=== PATIENT | female | born 1995 | race Caucasian/White ===

== ENCOUNTER 2016-05-05 21:51 | Emergency (ER) | payer OTHER ==
[~2016-05-05] VITALS: Ht 167.6 cm; Wt 58.3 kg
[2016-05-05 21:55] VITALS: Ht 167.6 cm; Wt 58.3 kg
[2016-05-05] MEDS ORDERED: CETI10TA84 PO (22:43)
[2016-05-05] MEDS ORDERED: BCPILLS PO (22:43)
[2016-05-05] MEDS ORDERED: CITA20TA9 PO (22:43)
[2016-05-05 22:49] VITALS: O2SAT 99
--- NOTE | 2016-05-05 22:49 | EMERGENCY ROOM VISIT NOTE ---
History Report prepared by Kathleen: Pastora Seay Under the Supervision of: Mariia De SouzaO. First contact with patient: 22:32 Chief Complaint: OTHER COMPLAINT Stated Complaint: BODY ACHES,SORE THROAT,RED SPOTS ON BODY History of Present Illness The patient is a 20 year old female who presents to the Emergency Room with complaints of a constant rash beginning 4 hours ago. She states that she woke up this morning and felt fatigue, sore throat, body aches, soreness, headache, left calf pain and chills. She reports that when she got back from class 4 hours ago she noticed red spots on her body that are worsening and have spread to her palms and abdomen. The patient denies any pain, itchiness, or bumpiness to her rash. She denies any recent travel, abdominal pain, or noticing others with similar symptoms. She reports that she took Advil this morning and slept 7 hours today. The patient notes that she has never had similar symptoms previously. Source of History: patient Onset: 4 hours ago Position: other (global) Quality: other (red spots) Timing: constant, worsening Associated Symptoms: + chills, + fatigue, + headache, + sorethroat Note: She states that she woke up this morning and felt body aches, soreness, left calf pain. The patient denies any pain, itchiness, or bumpiness to her rash. She denies any recent travel, abdominal pain, or noticing others with similar symptoms. Review of Systems See HPI for pertinent positives and negatives. A total of ten systems were reviewed and were otherwise negative. Past Medical & Surgical Medical Problems: (1) No Known Active Medical Problems Family History Diabetes mellitus Hypertension Social History Smoking Status: Never Smoker Smokeless Tobacco Use: No Alcohol Use: occasionally Marital Status: single Housing Status: lives with roommate Occupation Status: [employer] student Current/Historical Medications Scheduled Control Pills ( Control Pills), 1 TAB PO QPM Scheduled PRN Cetirizine (Zyrtec), 10 MG PO DAILY PRN for ALLERGIC REACTION Citalopram Hydrobromide (Celexa), 20 MG PO DAILY PRN for Anxiety Allergies Coded Allergies: No Known Allergies (Unverified , 05/05/16) Physical Exam Vital Signs Date Time Temp Pulse Resp B/P Pulse Ox O2 Delivery O2 Flow Rate FiO2 05/06/16 00:28 37.2 91 16 115/67 98 Room Air 05/05/16 23:25 118 16 116/93 97 Room Air 05/05/16 23:11 112 16 98 Room Air 05/05/16 22:55 113 05/05/16 22:49 99 Room Air 05/05/16 21:55 37.0 121 16 130/77 99 Room Air Physical Exam GENERAL: Awake, alert, well-appearing, in no distress HENT: Normocephalic, atraumatic. Oropharynx unremarkable. EYES: Normal conjunctiva. Sclera non-icteric. NECK: Supple. No nuchal rigidity. FROM. No JVD. RESPIRATORY: Clear to auscultation. CARDIAC: Regular rate, normal rhythm. Extremities warm and well perfused. Pulses equal. ABDOMEN: Soft, non-distended. No tenderness to palpation. No rebound or guarding. No masses. RECTAL: Deferred. MUSCULOSKELETAL: Chest examination reveals no tenderness. The back is symmetrical on inspection without obvious abnormality. There is no CVA tenderness to palpation. No joint edema. LOWER EXTREMITIES: Calves are equal size bilaterally and non-tender. No edema. No discoloration. NEURO: Normal sensorium. No sensory or motor deficits noted. SKIN: Diffuse blanchable maculopapular rash. Medical Decision & Procedures ER Provider Diagnostic Interpretation: X-ray: Per my interpretation. Chest X-Ray: Negative for infilterate, no effusions. Laboratory Results 05/05/16 22:35 Red Blood Count 4.51, Mean Corpuscular Volume 89.1, Mean Corpuscular Hemoglobin 31.0, Mean Corpuscular Hemoglobin Concent 34.8, Mean Platelet Volume 9.7, Neutrophils (%) (Auto) 91.0, Lymphocytes (%) (Auto) 5.6, Monocytes (%) (Auto) 2.7, Eosinophils (%) (Auto) 0.2, Basophils (%) (Auto) 0.2, Neutrophils # (Auto) 14.91, Lymphocytes # (Auto) 0.92, Monocytes # (Auto) 0.44, Eosinophils # (Auto) 0.03, Basophils # (Auto) 0.04 05/05/16 22:35 Test 05/05/16 22:35 05/05/16 22:44 White Blood Count 16.39 K/uL (4.8-10.8) Red Blood Count 4.51 M/uL (4.2-5.4) Hemoglobin 14.0 g/dL (12.0-16.0) Hematocrit 40.2 % (37-47) Mean Corpuscular Volume 89.1 fL (80-100) Mean Corpuscular Hemoglobin 31.0 pg (25-34) Mean Corpuscular Hemoglobin Concent 34.8 g/dl (32-36) Platelet Count 267 K/uL (130-400) Mean Platelet Volume 9.7 fL (7.4-10.4) Neutrophils (%) (Auto) 91.0 % Lymphocytes (%) (Auto) 5.6 % Monocytes (%) (Auto) 2.7 % Eosinophils (%) (Auto) 0.2 % Basophils (%) (Auto) 0.2 % Neutrophils # (Auto) 14.91 K/uL (1.4-6.5) Lymphocytes # (Auto) 0.92 K/uL (1.2-3.4) Monocytes # (Auto) 0.44 K/uL (0.11-0.59) Eosinophils # (Auto) 0.03 K/uL (0-0.5) Basophils # (Auto) 0.04 K/uL (0-0.2) RDW Standard Deviation 44.3 fL (36.4-46.3) RDW Coefficient of Variation 13.5 % (11.5-14.5) Immature Granulocyte % (Auto) 0.3 % Immature Granulocyte # (Auto) 0.05 K/uL (0.00-0.02) Prothrombin Time 11.7 SECONDS (9.0-12.0) Prothromb Time International Ratio 1.1 (0.9-1.1) Anion Gap 7.0 mmol/L (3-11) Est Creatinine Clear Calc Drug Dose 87.9 ml/min Estimated GFR () 101.2 Estimated GFR (Non- 87.3 BUN/Creatinine Ratio 12.0 (10-20) Calcium Level 9.2 mg/dl (8.5-10.1) Total Bilirubin 0.4 mg/dl (0.2-1) Direct Bilirubin 0.1 mg/dl (0-0.2) Aspartate Amino Transf (AST/SGOT) 13 U/L (15-37) Alanine Aminotransferase (ALT/SGPT) 18 U/L (12-78) Alkaline Phosphatase 70 U/L (45-117) Total Protein 8.1 gm/dl (6.4-8.2) Albumin 3.7 gm/dl (3.4-5.0) Monoscreen NEG (NEG) Laboratory results reviewed by me Medications Administered Medications (Trade) Dose Ordered Sig/[place] Route Start Time Stop Time Status Last Admin Dose Admin Diphenhydramine HCl 25 mg 25 mg NOW STAT IV 05/05/16 23:16 05/05/16 23:17 DC 05/05/16 23:27 25 MG Sodium Chloride (Nss 1000ml) 1,000 ml @ 999 mls/hr Q1H1M STAT IV 05/05/16 23:47 05/06/16 00:47 05/05/16 23:49 999 MLS/HR Acetaminophen (Tylenol Tab) 1,000 mg NOW STAT PO 05/06/16 00:15 05/06/16 00:16 DC 05/06/16 00:27 1,000 MG ED Course 2232: The patient was evaluated in room C8. A complete history and physical exam was performed. 2316: Benadryl Inj 25mg IV. 2338: I reevaluated the patient. She is resting and is in no distress. She is smiling and interacting with her friends at the bedside and has no current complaints. 2347: Sodium Chloride 1000 ml @ 999 mls/hr IV. 0015: Tylenol Tab 1000mg PO. 0032: 0042: I reevaluated the patient. Discussed results and discharge instructions: She verbalized understanding and agreement. The patient is ready for discharge. Medical Decision Differential diagnoses include viral syndrome, viral exanthem, upper respiratory infection, pharyngitis, doubt meningitis, non-petechial rash, possible allergic reaction. Patient on reexamination is smiling and in no distress and nontoxic in appearance. Patient was given Benadryl to see if that would rohini the rash it did not. Patient's rash on reexamination is blanchable and it is not petechial. I do not suspect the patient have meningitis or meningococcemia at this time. Patient was given IV fluids Tylenol. This may be viral in nature and a viral exanthem. Patient was instructed to return for worsening symptoms fever headache photophobia and neck pain or for any worsening of symptoms. Reexamination 1236 patient is resting in no distress; heart rate less than 100 blood pressures greater than 110 smiling in no distress drinking fluids. I discussed workup with the patient patient's friends at bedside. Impression Primary Impression: Viral exanthem, unspecified Scribe Attestation The scribe's documentation has been prepared under my direction and personally reviewed by me in its entirety. I confirm that the note above accurately reflects all work, treatment, procedures, and medical decision making performed by me. Departure Information Dispostion Home / Self-Care Patient Instructions ED Viral Syndrome, My [facility]
[2016-05-05 22:55] LABS: HEMATOCRIT 40.2 % (37-47); MEAN CELL VOLUME 89.1 fL (80-100); MEAN CORPUSCULAR HGB CONC 34.8 g/dl (32-36); MEAN PLATELET VOLUME 9.7 fL (7.4-10.4); PLATELET COUNT 267 K/uL (130-400); RED BLOOD COUNT 4.51 M/uL (4.2-5.4); WHITE BLOOD COUNT 16.39 K/uL (4.8-10.8)
[2016-05-05 23:09] LABS: INR 1.1 (0.9-1.1); PROTHROMBIN TIME (PATIENT) 11.7 SECONDS (9.0-12.0)
[2016-05-05 23:10] LABS: BASO % 0.2 %; BASO ABS # 0.04 K/uL (0-0.2); COMPLETE YES; EOS % 0.2 %; IG% 0.3 %; LYMPH % 5.6 %; LYMPH ABS # 0.92 K/uL (1.2-3.4); MONO % 2.7 %
[2016-05-05] MEDS ORDERED: DiphenhydrAMINE HCL 50 MG/ML VIAL IV STA (23:16)
[2016-05-05 23:20] LABS: CALCIUM 9.2 mg/dl (8.5-10.1); CREATININE 0.94 mg/dl (0.60-1.20); POTASSIUM 3.5 mmol/L (3.5-5.1)
[2016-05-05] MEDS ORDERED: SODIUM CHLORIDE 0.9% 1000ML 1,000 ML IV STA (23:47)
[2016-05-06] MEDS ORDERED: ACETAMINOPHEN 500 MG TAB PO STA (00:15)
[2016-05-06 00:52] VITALS: BP 115/67; PULSE 91; TEMP 37.2; O2SAT 98
--- NOTE | 2016-05-06 06:49 | DIAGNOSTIC IMAGING REPORT ---
CHEST ONE VIEW PORTABLE CLINICAL HISTORY: fever dyspnea COMPARISON STUDY: No previous studies for comparison. FINDINGS: Subtle left infrahilar infiltrate. Lungs otherwise appear clear. No evidence for cardiac enlargement. Diaphragms smooth. IMPRESSION: Minimal left infrahilar infiltrate Electronically signed by: Constantine Yan M.D. 05/06/2016 6:48 AM Dictated Date/Time: 05/06/2016 6:47 AM
== END 2016-05-06 00:55 | disposition home or self-care (01) ==
LOC: C.EDB 21:53 → C.EDC 05-06 00:55
DX: B09 Unspecified viral infection characterized by skin and mucous membrane lesions (principal); Z83.3 Family history of diabetes mellitus; Z82.49 Family history of ischemic heart disease and other diseases of the circulatory system

== ENCOUNTER → 2016-05-11 | Outpatient (CLI) | payer OTHER ==
[~2016-05-11] MED LIST: BCPILLS PO; CETI10TA84 PO; CITA20TA9 PO
--- NOTE | 2016-05-11 13:19 | DIAGNOSTIC IMAGING REPORT ---
ULTRASOUND VENOUS DOPPLER ULTRASOUND OF THE LEFT LOWER EXTREMITY CLINICAL HISTORY: L CALF PAIN COMPARISON STUDY: No previous studies for comparison. FINDINGS: Real-time and color flow Doppler imaging were performed. Flow was seen within the femoral, popliteal and calf veins with no intraluminal thrombus demonstrated. The saphenous vein is patent. IMPRESSION: No evidence of left lower extremity DVT. Electronically signed by: Berny Rodrigues M.D. 05/11/2016 1:18 PM Dictated Date/Time: 05/11/2016 1:16 PM
== END | disposition home or self-care (01) ==
PROVIDERS: ATTEND Physician Assistant
DX: M79.662 Pain in left lower leg (principal)